=== PATIENT | male | born 1995 | race Caucasian/White ===

== ENCOUNTER 2017-11-11 02:44 | Emergency (ER) | payer SELFPAY ==
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
[2017-11-11 02:52] VITALS: TEMP 98.1
[2017-11-11 03:58] VITALS: BP 110/76; PULSE 87; RESP 19; O2SAT 95
== END 2017-11-11 03:59 | disposition home or self-care (01) ==
DX: S09.90XA Unspecified injury of head, initial encounter (principal); S00.81XA Abrasion of other part of head, initial encounter; Y04.0XXA Assault by unarmed brawl or fight, initial encounter